=== PATIENT | female | born 1995 | race African-American/Black ===

== ENCOUNTER 2021-12-31 00:34 | Emergency (ER) | payer MEDICAID, OTHER ==
[~2021-12-31] VITALS: Ht 160 cm; Wt 76.0 kg
[2021-12-31 00:35] VITALS: BP 112/66
[2021-12-31] MEDS ORDERED: LIDOCAINE HCL/PF 1% 10 MG/ML 5ML VIAL INFIL ONE (05:30)
[2021-12-31] MEDS ORDERED: CEPH500T PO (05:53)
[2021-12-31] MEDS ORDERED: TOPUD PO (05:53)
[2021-12-31] MEDS ORDERED: SULF1TAB48 PO (05:53)
== END 2021-12-31 06:23 | disposition home or self-care (01) ==
LOC: ER 00:34
DX: L02.214 Cutaneous abscess of groin (principal)
CPT/HCPCS: 10060; 99284; J3490